=== PATIENT | female | born 1950 | race Caucasian/White ===

== ENCOUNTER → 2018-03-02 | Outpatient (CLI) | payer MEDICARE ==
--- NOTE | 2018-03-02 15:35 | Diagnostic Imaging Report ---
Examination: MRI SPINE CERVICAL WITHOUT CONTRAST History: Neck pain with left arm pain. Comparison studies: None Technique: Sagittal T1, T2 and IR, axial T2 and axial gradient echo intravenous contrast: None Findings: Alignment: Straightening of normal lordosis. No scoliosis. Cervicomedullary junction: No abnormalities. Patent foramen magnum. Soft tissues: No T2 hyperintense inflammatory changes. Spinal cord: Normal in size and signal from the foramen magnum through T1. Vertebrae: No fractures, infection or neoplasm. Degenerative changes: C1-C2: No abnormalities. C2-C3: No abnormalities. C3-C4: No abnormalities. C4-C5: Diffuse disc osteophyte, but some mild ligamentum flavum thickening result in mild bilateral neural foraminal narrowing. No canal stenosis. C5-C6: Diffuse disc osteophyte complex and bilateral uncovertebral arthropathy result in mild right and severe left neural foraminal narrowing and moderate canal stenosis. C6-C7: Central disc protrusion superimposed on a diffuse disc osteophyte complex and bilateral uncovertebral arthropathy result in mild bilateral neural foraminal narrowing and mild canal stenosis. C7-T1: Diffuse disc osteophyte complex and mild bilateral uncovertebral arthropathy result in moderate right and mild left neural foraminal narrowing. No canal stenosis. IMPRESSION: 1. Degenerative changes from C4-C5 through C7-T1 with moderate canal stenosis at C5-C6 and mild canal stenosis at C6-C7. 2. Severe left foraminal narrowing at C5-C6 and moderate right foraminal narrowing at C7-T1. Signed by: Dr. Aranza Johnson M.D. on 03/02/2018 3:32 PM
== END ==
LOC: MRI 10:22
PROVIDERS: ATTEND Family Medicine
DX: M54.2 Cervicalgia (principal); M50.30 Other cervical disc degeneration, unspecified cervical region; M79.622 Pain in left upper arm; R20.2 Paresthesia of skin
CPT/HCPCS: 72141

== ENCOUNTER 2018-04-12 05:00 | Observation (INO) | payer MEDICARE ==
[2018-04-10 10:18] LABS: BASOPHILS # (AUTO) 0.1 (0.0-0.1); BASOPHILS % 0.6 % (0.0-1.0); EOSINOPHILS # (AUTO) 0.3 (0.0-0.4); EOSINOPHILS % 2.8 % (0.0-6.0); HEMATOCRIT 39.9 % (34.2-44.1); HEMOGLOBIN 12.7 g/dL (12.0-16.0); LYMPHOCYTES % 17.4 % (18.0-39.1); MEAN CORPUSCULAR HGB CONC 31.8 g/dL (31-35); MEAN CORPUSCULAR VOLUME 81.8 fL (81-99); MONOCYTES # (AUTO) 0.7 (0.2-0.8); MONOCYTES % 6.5 % (4.4-11.3); NEUTROPHILS # (AUTO) 8.2 (2.1-6.9); NEUTROPHILS % 72.2 % (38.7-80.0); PLATELET COUNT 250 x10e3/uL (140-360); RED BLOOD COUNT 4.88 x10e6/uL (3.6-5.1); RED CELL DISTRIBUTION WIDTH 13.2 % (11.7-14.4)
[2018-04-10 10:28] LABS: INR 0.85; PARTIAL THROMBOPLASTIN TIME 31.6 seconds (23.8-35.5); PROTHROMBIN TIME 12.4 seconds (11.9-14.5)
--- NOTE | 2018-04-10 10:29 | Diagnostic Imaging Report ---
EXAMINATION: PA and lateral views of the chest. COMPARISON: None CLINICAL HISTORY: Preop for spinal procedure DISCUSSION: Lungs are well-inflated and without focal consolidation, pleural effusion, or pneumothorax. Tortuous thoracic aorta with otherwise normal cardiomediastinal contour. No pulmonary edema. No acute osseous abnormalities. Surgical clips project over the right upper quadrant of the abdomen compatible with prior cholecystectomy. IMPRESSION: No acute cardiopulmonary abnormalities. Signed by: Dr. David Sultana M.D. on 04/10/2018 10:26 AM
[2018-04-10 10:38] LABS: ANION GAP 12.7 mmol/L (8-16); CALCIUM 9.7 mg/dL (8.4-10.2); CREATININE, SERUM 1.24 mg/dL (0.57-1.11); POTASSIUM 3.7 mmol/L (3.5-5.1)
[~2018-04-12] VITALS: Ht 170.2 cm; Wt 93.4 kg
[~2018-04-12 05:00] MED LIST: AMLODIPINE BESYL5 MG PO; ASPIR 8181 MG PO; DOXYCYCLINE HY100 MG PO; HYDROCHLOROTHIA25 MG PO; HYDROXYZINE HCL25 MG PO; LIPITOR20 MG PO; LISINOPRIL10 MG PO; NOVOLOG100 UNIT/1 SC; VENLAFAXINE HCL75 MG PO; VENTOLIN HFA18 GM IH; [UNRECOGNIZED DRUG - OTHER] SC
[2018-04-12] MEDS ORDERED: CEFAZOLIN SOD 1 GM/NS 50ML 100 ML IV ONE (05:16)
--- OUTSIDE RECORDS SUMMARY | 2018-04-12 05:17 | XMS REPORT ---
Author Author [facility] Address Unknown Phone Unavailable Care Team Providers Care Loom Tuner Name Role Phone GWEN MCKNIGHT Unavailable Unavailable FARSHAD CAMARILLO Unavailable Unavailable Problems This patient has no known problems. Allergies, Adverse Reactions, Alerts This patient has no known allergies or adverse reactions. Medications This patient has no known medications. Results Test Description Test Time Test Comments Text Results Atomic Results Result Comments CHEST 2 VIEWS 2018-04-10 10:24:00 [facility] [address] [place] [address] Patient Name: WILLIAM NOVOA MR #: [id number] : 1950 Age/Sex: 67/F Req #: [id number] Adm Physician: Ordered by: GWEN MCKNIGHT MD Report #: [id number] Location: OR Room/Bed: Procedure: [id number] DX/CHEST 2 VIEWS Exam Date: 04/10/18 Exam Time: 1000 REPORT STATUS: Signed EXAMINATION: PA and lateral views of the chest. COMPARISON: None CLINICAL HISTORY: Preop for spinal procedure DISCUSSION: Lungs are well-inflated and without focal consolidation, pleural effusion, or pneumothorax. Tortuous thoracic aorta with otherwise normal cardiomediastinal contour. No pulmonary edema. No acute osseous abnormalities. Surgical clips project over the right upper quadrant of the abdomen compatible with prior cholecystectomy. IMPRESSION: No acute cardiopulmonary abnormalities. Signed by: Dr. Davy Schmidt M.D. on 04/10/2018 10:26 AM Dictated By: DAVY SCHMIDT MD 1026 Transcribed By: MOSHE on 04/10/18 1026 COPY TO: GWEN MCKNIGHT MD MRI SPINE CERVICAL WO 2018-03-02 15:29:00 [place] [address] Patient Name: WILILAM NOVOA MR #: [id number] : 1950 Age/Sex: 67/F Req #: [id number] Adm Physician: Ordered by: FARSHAD CAMARILLO DO Report #: [id number] Location: MRI Room/Bed: Procedure: [id number] MRI/MRI SPINE CERVICAL WO Exam Date: 03/02/18 Exam Time: 1050 REPORT STATUS: Signed Examination: MRI SPINE CERVICAL WITHOUT CONTRAST History: Neck pain with left arm pain. Comparison studies: None Technique: Sagittal T1, T2 and IR, axial T2 and axial gradient echo intravenous contrast: None Findings: Alignment: Straightening of normal lordosis. No scoliosis. Cervicomedullary junction: No abnormalities. Patent foramen magnum. Soft tissues: No T2 hyperintense inflammatory changes. Spinal cord: Normal in size and signal from the foramen magnum through T1. Vertebrae: No fractures, infection or neoplasm. Degenerative changes: C1-C2: No abnormalities. C2-C3: No abnormalities. C3-C4: No abnormalities. C4-C5: Diffuse disc osteophyte, but some mild ligamentum flavum thickening result in mild bilateral neural foraminal narrowing. No canal stenosis. C5-C6: Diffuse disc osteophyte complex and bilateral uncovertebral arthropathy result in mild right and severe left neural foraminal narrowing and moderate canal stenosis. C6-C7: Central disc protrusion superimposed on a diffuse disc osteophyte complex and bilateral uncovertebral arthropathy result in mild bilateral neural foraminal narrowing and mild canal stenosis. C7- T1: Diffuse disc osteophyte complex and mild bilateral uncovertebral arthropathy result in moderate right and mild left neural foraminal narrowing. No canal stenosis. IMPRESSION: 1. Degenerative changes from C4-C5 through C7-T1 with moderate canal stenosis at C5-C6 and mild canal stenosis at C6-C7. 2. Severe left foraminal narrowing at C5-C6 and moderate right foraminal narrowing at C7-T1. Signed by: Dr. Aranza Johnson M.D. on 03/02/2018 3:32 PM Dictated By: ARANZA GAYTAN MD 1532 Transcribed By: MOSHE on 03/02/18 1532 COPY TO: FARSHAD CAMARILLO DO
[2018-04-12] MEDS ORDERED: BACITRACIN 50,000 UNIT VIAL ONE (06:28)
[2018-04-12] MEDS ORDERED: BUPIVACAINE 0.5%/EPI 30 ML SDV INJ ONE (06:28)
[2018-04-12] MEDS ORDERED: GELATIN SPONGE 12-7MM ONE (06:28)
[2018-04-12] MEDS ORDERED: THROMBIN FOR SOLN 5,000 UNIT VIAL ONE (06:28)
[2018-04-12] MEDS ORDERED: ACETAMINOPHEN 1000 MG/100 ML 100 ML IV ONE (07:01)
[2018-04-12] MEDS ORDERED: LIDOCAINE HCL (LTA) 4 ML SOLN ONE (07:02)
[2018-04-12] MEDS ORDERED: PROMETHAZINE HCL (IM) 25 MG/ML VIAL IM PRN (09:15)
[2018-04-12] MEDS ORDERED: DEXTROSE 50% SYRINGE 50 ML IV PRN (09:15)
[2018-04-12] MEDS ORDERED: ONDANSETRON HCL INJ 2MG/ML 2ML 2 MG/ML VIAL IV PRN (09:15)
[2018-04-12] MEDS ORDERED: ACETAMINOPHEN 325 MG TAB PO PRN ×2 (09:15→12:00)
[2018-04-12] MEDS ORDERED: HYDROMORPHONE 2MG/ML 2 MG/ML ML IV PRN (09:15)
[2018-04-12] MEDS ORDERED: HYDROXYZINE HCL 25 MG TAB PO SCH (09:15)
[2018-04-12] MEDS ORDERED: ALBUTEROL SULFATE HFA 8GM INHALATION AEROSOL INH SCH (09:15)
[2018-04-12] MEDS ORDERED: CARISOPRODOL 350 MG TAB PO PRN (09:15)
[2018-04-12] MEDS ORDERED: MAGNESIUM/ALUMINUM/SIMETHICONE 30 ML UDC PO PRN (09:15)
[2018-04-12] MEDS ORDERED: OXYCODONE/ACETAMINOPHEN 5-325 1 EACH TABLET PO PRN ×2 (09:15→12:00)
[2018-04-12] MEDS ORDERED: MORPHINE SULFATE 5 MG/ML VIAL IM PRN (09:15)
[2018-04-12] MEDS ORDERED: ZOLPIDEM TARTRATE 5 MG TAB PO PRN (09:15)
[2018-04-12] MEDS ORDERED: HYDROMORPHONE 2MG/ML 2 MG/ML ML ONE (09:52)
[2018-04-12] MEDS: INSULIN LISPRO 100 UNIT/1 ML 3ML VIAL SQ SCH ×2 (11:30→16:16)
[2018-04-12 11:33] VITALS: BP 135/60
[2018-04-12 11:37] VITALS: BP 135/60
--- NOTE | 2018-04-12 11:44 | NUR ---
patient received from pacu via stretcher. see admit assess. vitals stable with no distress. dressing to right anterior neck dry and intact. hemovac in place with scant bloody output. teds and scd's in place. LR at 120cc/hr.
[2018-04-12] MEDS ORDERED: ALBUTEROL SULFATE HFA 8GM INHALATION AEROSOL INH PRN (11:45)
[2018-04-12] MEDS: LACTATED RINGER'S 1,000 ML IV SCH ×2 (11:55→17:34)
[2018-04-12] MEDS ORDERED: HYDROXYZINE HCL 25 MG TAB PO PRN (12:00)
[2018-04-12] MEDS ORDERED: CEFAZOLIN SOD 1 GM/NS 50ML 50 ML IV SCH (14:00)
[2018-04-12 16:37] VITALS: BP 132/63
--- NOTE | 2018-04-12 17:14 | Operative Report ---
DATE OF PROCEDURE: 04/12/2018 SURGEON: Deny Frank MD PREOPERATIVE DIAGNOSES: C5-6 and C6-7 spondylosis with radiculopathy, M50.120. POSTOPERATIVE DIAGNOSES: C5-6 and C6-7 spondylosis with radiculopathy, M50.120. PROCEDURES: 1. C5-6 anterior cervical diskectomy and microsurgical osteophyte resection and allograft fusion, 17004. 2. C6-7 anterior cervical diskectomy and microsurgical osteophyte resection and allograft fusion, 17441. 3. Preparation of tricortical iliac crest autograft, 72740. 4. C5-6 and C6-7 anterior cervical plating with Synthes CSLP plate, 53649. ANESTHESIA: General. INDICATIONS: The patient is a 67-year-old woman, who presents with large disk osteophyte complexes at C5-6 and C6-7 with central and bilateral foraminal stenosis, symptomatic primarily with left-sided radiculopathy in the C6 distribution. She was taken to the operating room for C5-6 and C6-7 anterior cervical decompression and fusion. PROCEDURE IN DETAIL: After induction of general anesthesia, the patient was placed on the operating table in supine position. The right side of the neck was prepped and draped in sterile fashion. A fluoroscopic C-arm was positioned on cross-table lateral orientation. A transverse incision was created on the right side of the neck, superimposed on the C6 vertebral body as determined by fluoroscopy. The platysma was divided in line with the incision and subplatysmal dissection was carried out and avascular plane of the dissection was developed medial to the sternocleidomastoid muscle, I was followed medial to the carotid sheath to the anterior border of the cervical spine. The deep cervical fascia was opened. The esophagus was retracted to the left. The attachments of longus colli muscles to the anterolateral aspects of vertebral bodies of C5, C6, and C7 were divided. The anterior longitudinal ligament was resected. Oakley posts were inserted into C5 and C7 and the Oakley distractor was used to distract both disk spaces simultaneously. The anterior annulus of the disks were incised with #11 blade. The contents of both disks were thoroughly evacuated with angled curettes and pituitary rongeurs. The posterior osteophytes were meticulously drilled with a 2 mm cutting blade on a high speed drill until they were completely removed. The posterior annulus of the disk, chronically herniated disk material, and the posterior longitudinal ligament were resected layer by layer until the dura was fully exposed and decompressed. The medial aspects of the uncinate processes were resected bilaterally to further expose and decompress the origins of the corresponding nerve roots. After satisfactory decompression had been achieved, the endplates were prepared for fusion. Two pieces of tricortical iliac crest allograft were cuts in size and shapes of the disk spaces and we inserted her disk spaces under distraction and fluoroscopic guidance. The distraction was released and distraction posts were removed. Synthes CSLP variable type anterior cervical plate, measuring 31 mm was selected and was then fixed to the vertebral bodies of C5, C6, and C7 with 3 pairs of 14 x 4.35 mm screws. All screw holes were drilled and tapped on the lateral fluoroscopic guidance. All screws were locked with the appropriate locking screws. An excellent construct was obtained. The wound was copiously irrigated with bacitracin solution. Meticulous hemostasis was secured. The retractor was removed. A small Hemovac drain was placed over the plate and brought onto a separate stab incision. The platysma was closed with 3-0 Vicryl sutures. The skin was closed with 4-0 Monocryl sutures in subcuticular fashion. Steri-strips and dressing were applied. The patient was awakened, extubated, and taken to Postanesthesia Care Unit in stable condition. No intraoperative complications were encountered. Estimated blood loss was 30 mL. Deny Frank MD PP/MODL /[id number]
[2018-04-12] MEDS ORDERED: ONDANSETRON HCL INJ 2MG/ML 2ML 2 MG/ML VIAL ONE (17:40)
[2018-04-12] MEDS ORDERED: DESFLURANE 240 ML BTL INH ONE (17:40)
[2018-04-12] MEDS ORDERED: ROCURONIUM BROMIDE 10 MG/ML 5ML VIAL ONE (17:40)
[2018-04-12] MEDS ORDERED: DEXAMETHASONE SOD PHOS INJ 4 MG/ML VIAL ONE (17:40)
[2018-04-12] MEDS ORDERED: LIDOCAINE HCL 2% LOCAL INJ 5 ML SDV VIAL INJ ONE (17:40)
[2018-04-12] MEDS ORDERED: PROPOFOL IV EMULSION 10 MG/ML 20 ML VIAL ONE (17:40)
[2018-04-12] MEDS ORDERED: INSULIN LISPRO 100 UNIT/1 ML 3ML VIAL SQ ONE (17:45)
[2018-04-12] MEDS: VENLAFAXINE HCL 75 MG TAB PO SCH (17:47)
[2018-04-12] MEDS: CEFAZOLIN SOD 1 GM/NS 50ML 50 ML IV SCH (17:47)
[2018-04-12] MEDS ORDERED: MIDAZOLAM HCL 2 MG/2 ML VIAL ONE (17:53)
[2018-04-12] MEDS ORDERED: FENTANYL CITRATE/PF 100MCG/2 ML INJ ONE (17:53)
[2018-04-12] MEDS: CEPACOL SORE THROAT LOZENGES PO PRN ×2 (19:00→21:13)
[2018-04-12 20:00] VITALS: BP 141/65
[2018-04-12] MEDS ORDERED: [UNRECOGNIZED DRUG - OTHER] SC SCH (21:00)
[2018-04-12] MEDS ORDERED: ATORVASTATIN 20 MG TAB PO SCH (21:00)
[2018-04-13] VITALS: BP 136/65
[2018-04-13] MEDS: LACTATED RINGER'S 1,000 ML IV SCH (00:02)
[2018-04-13] MEDS: CEFAZOLIN SOD 1 GM/NS 50ML 50 ML IV SCH ×2 (00:14→08:20)
[2018-04-13] MEDS: INSULIN LISPRO 100 UNIT/1 ML 3ML VIAL SQ SCH ×2 (00:27→07:50)
[2018-04-13] MEDS: CEPACOL SORE THROAT LOZENGES PO PRN ×2 (02:00→04:48)
[2018-04-13 04:00] VITALS: BP 162/81
--- NOTE | 2018-04-13 06:08 | Diagnostic Imaging Report ---
Cervical Spine Two Views CPT code: 52723 Indication: Postoperative, neck surgery Technique: AP and lateral views of cervical spine obtained. Comparison: MRI cervical spine 03/02/2018 chest x-ray, 04/10/2018 Findings: Images obtained while in a cervical collar. Cervical vertebral bodies can be visualized to C7. Patient is status post anterior cervical discectomy and fusion from C5 to C7. The vertebral bodies are in anatomic alignment. The hardware is intact. A cervical drain is in place to the right of midline. There is mild prevertebral soft tissue swelling. No soft tissue air. Alignment is maintained on the AP view. The skull base is unremarkable. There is mild left apical pleural thickening, stable. IMPRESSION: Postoperative changes as described above. No malalignment. Signed by: Dr. Rafal Jioner MD on 04/13/2018 6:05 AM
--- NOTE | 2018-04-13 07:24 | NUR ---
Patient resting in bed, Alert with no distress, dressing and drain is intact , denies any pain
[2018-04-13 07:47] VITALS: BP 178/79
[2018-04-13] MEDS ORDERED: LISINOPRIL 10 MG TAB PO SCH (09:00)
[2018-04-13] MEDS ORDERED: AMLODIPINE BESYLATE 5 MG TAB PO SCH (09:00)
[2018-04-13] MEDS ORDERED: ASPIRIN 81 MG CHEW TAB PO SCH (09:00)
[2018-04-13] MEDS ORDERED: DOXYCYCLINE HYCLATE TABLET 100 MG TAB PO SCH (09:00)
[2018-04-13] MEDS ORDERED: HYDROCHLOROTHIAZIDE 25 MG TAB PO SCH (09:00)
[2018-04-13] MEDS ORDERED: [UNRECOGNIZED DRUG - OTHER] SC SCH (09:00)
[2018-04-13] MEDS: VENLAFAXINE HCL 75 MG TAB PO SCH (09:04)
[2018-04-13 09:09] VITALS: BP 178/79
--- NOTE | 2018-04-13 09:11 | NUR ---
patient discharged home, Alert with no distress, dressing changed on anterior neck, drainage tube removed, 5cc of drain in hemovac, no redness, swelling or drainage on incision site. IV canula removed with tip intact, no ss of infiltration noted, prescription given, her son at bed side to give ride, patient aware about incision site care and follow up appointments
[2018-04-13] MEDS ORDERED: NORCO 7.5-3251 EACH PO (09:17)
== END 2018-04-13 10:00 | disposition home or self-care (01) ==
LOC: OR 05:00 → PACU V 09:19 → IMCU 11:40
PROVIDERS: ADMIT Neurological Surgery; ATTEND Neurological Surgery
DX: M47.22 Other spondylosis with radiculopathy, cervical region (principal); E78.5 Hyperlipidemia, unspecified; R13.10 Dysphagia, unspecified; G47.33 Obstructive sleep apnea (adult) (pediatric); E11.22 Type 2 diabetes mellitus with diabetic chronic kidney disease; I12.9 Hypertensive chronic kidney disease with stage 1 through stage 4 chronic kidney disease, or unspecified chronic kidney disease; N18.9 Chronic kidney disease, unspecified; Z79.82 Long term (current) use of aspirin; Z79.4 Long term (current) use of insulin; Z01.812 Encounter for preprocedural laboratory examination; Z01.811 Encounter for preprocedural respiratory examination
CPT/HCPCS: 20931; 22551; 22552; 22845; 36415 ×3; 71046; 72040; 77003; 80048; 82948 ×2; 85025; 85610; 85730; 86850; 86900; 88304; 93005; C1713 ×4; C1763; G0378 ×2; J0131; J0690 ×2; J1100; J1170; J2001; J2250; J2405; J2704; J3410

== ENCOUNTER → 2018-05-10 | Outpatient (CLI) | payer MEDICARE ==
[~2018-05-10] MED LIST changes: +NORCO 7.5-3251 EACH PO
--- NOTE | 2018-05-10 12:09 | Diagnostic Imaging Report ---
Radiographs of the cervical spine - 4 views with flexion and extension HISTORY: Pain COMPARISON: 04/13/2018 FINDINGS: Bones: No acute displaced fracture. No subluxation on the flexion or extension images Joints: Patient is status post anterior fusion from C5 through C7. The surgical hardware is intact without evidence of failure or loosening. Soft tissues: The soft tissues appear unremarkable. IMPRESSION: Patient is status post anterior fusion from C5 through C7. The surgical hardware is intact without evidence of failure or loosening. Signed by: Dr. Shane Tucker M.D. on 05/10/2018 12:06 PM
== END ==
LOC: RAD 10:15
PROVIDERS: ATTEND Neurological Surgery
DX: M50.20 Other cervical disc displacement, unspecified cervical region (principal); Z98.1 Arthrodesis status
CPT/HCPCS: 72050

== ENCOUNTER → 2018-10-29 | Outpatient (CLI) | payer MEDICARE ==
--- NOTE | 2018-10-29 09:54 | Diagnostic Imaging Report ---
EXAMINATION: SPINE CERVICAL AP LAT FLEX EXT INDICATION: Postoperative COMPARISON: Multiple prior cervical spine radiographs, most recently of 05/10/2018 FINDINGS: AP, lateral, flexion and extension views of the cervical spine were obtained. The patient is status post anterior cervical discectomy and fusion at C5-7. Alignment appears anatomic and is unchanged on usual, flexion and extension views. No acute osseous injury. Hardware appears intact with no evidence of new or increasing periprosthetic lucency. The prevertebral soft tissues are normal in thickness. IMPRESSION: Unchanged alignment status post anterior cervical discectomy and fusion at C5-7. Signed by: Francisco Lopez MD on 10/29/2018 9:51 AM
== END ==
LOC: RAD 08:14
PROVIDERS: ATTEND Neurological Surgery
DX: M50.20 Other cervical disc displacement, unspecified cervical region (principal)
CPT/HCPCS: 72050

== ENCOUNTER → 2020-10-12 | Outpatient (CLI) | payer MEDICARE | LOC: RAD 11:28 | PROVIDERS: ATTEND Internal Medicine | DX: R06.00 Dyspnea, unspecified (principal) | CPT/HCPCS: 71046 ==

== ENCOUNTER → 2022-02-03 | Day surgery (SDC) | payer MEDICARE ==
[2022-02-01 09:44] LABS: BASOPHILS # (AUTO) 0.1 (0.0-0.1); BASOPHILS % 0.8 % (0.0-1.0); EOSINOPHILS # (AUTO) 0.4 (0.0-0.4); EOSINOPHILS % 3.8 % (0.0-6.0); HEMATOCRIT 40.8 % (34.2-44.1); LYMPHOCYTES # (AUTO) 1.3 (1.0-3.2); LYMPHOCYTES % 12.7 % (18.0-39.1); MEAN CORPUSCULAR HEMOGLOBIN 27.9 pg (28-32); MEAN CORPUSCULAR HGB CONC 31.9 g/dL (31-35); MEAN CORPUSCULAR VOLUME 87.6 fL (81-99); MONOCYTES # (AUTO) 0.7 (0.2-0.8); MONOCYTES % 6.6 % (4.4-11.3); NEUTROPHILS # (AUTO) 7.9 (2.1-6.9); NEUTROPHILS % 75.6 % (38.7-80.0); PLATELET COUNT 234 x10e3/uL (140-360); RED BLOOD COUNT 4.66 x10e6/uL (3.6-5.1); RED CELL DISTRIBUTION WIDTH 13.5 % (11.7-14.4)
[2022-02-01 10:15] LABS: ALBUMIN 3.5 g/dL (3.5-5.0); ALBUMIN/GLOBULIN RATIO 0.9 (0.8-2.0); ANION GAP 16.4 mmol/L (8-16); CALCIUM 9.1 mg/dL (8.4-10.2); CHOL/HDL RATIO 3.4 (3.0-3.6); CREATININE, SERUM 1.16 mg/dL (0.57-1.11); POTASSIUM 3.4 mmol/L (3.5-5.1)
[2022-02-03] VITALS (9 sets, daily range): BP systolic 121–145; BP diastolic 59–103
[~2022-02-03] MED LIST changes: +ALPRAZOLAM 0.5 MG TAB ONE; +BENICAR20 MG PO; +BREZTRI AEROS10.7 GM; +DICYCLOMINE HCL20 MG PO; +DIPHENHYDRAMINE HCL 25 MG CAP ONE; +FENTANYL CITRATE/PF 100MCG/2 ML INJ ONE; +FLONASE ALLERG9.9 ML INH; +HEPARIN SOD/SOD CHLORIDE 2,000 ML ONE; +LIDOCAINE HCL 2% LOCAL INJ 5 ML SDV VIAL INJ ONE; +MIDAZOLAM HCL 2 MG/2 ML VIAL ONE; +SODIUM CHLORIDE 0.9% 1000ML 1,000 ML ONE
== END | disposition home or self-care (01) ==
LOC: CATH LAB 08:40
PROVIDERS: ATTEND Internal Medicine Cardiovascular Disease
DX: I27.20 Pulmonary hypertension, unspecified (principal); R07.2 Precordial pain; I10 Essential (primary) hypertension; E78.00 Pure hypercholesterolemia, unspecified; R06.02 Shortness of breath; E11.9 Type 2 diabetes mellitus without complications; Z71.82 Exercise counseling; Z71.3 Dietary counseling and surveillance; Z79.82 Long term (current) use of aspirin; Z79.899 Other long term (current) drug therapy; Z79.4 Long term (current) use of insulin; Z82.49 Family history of ischemic heart disease and other diseases of the circulatory system; Z83.3 Family history of diabetes mellitus
CPT/HCPCS: 36415 ×2; 80053; 80061; 82948; 83880; 85025; 93451; C1769; J2001; J2250; J3010; J7030; 99152; 99153